=== PATIENT | male | born 1990 | race Caucasian/White ===

== ENCOUNTER 2020-03-01 12:15 | Emergency (ER) | payer BC, SELFPAY ==
--- NOTE | ~2020-03-01 | CT_ITS ---
EXAMINATION: CT abdomen pelvis w con DATE: 03/01/2020 14:44 INDICATION: Epigastric abdominal pain. TECHNIQUE: Computed tomography (CT) of the abdomen and pelvis was performed without intravenous contr ast. Automated exposure control and iterative reconstruction technique were employed. The dose-length product was 1357.66 mGy-cm. COMPARISON: Ultrasound 03/01/2020 FINDINGS: The visualized portions of the lung bases demonstrate minimal atelectasis. There is a 4 mm nodule left lower lobe, likely benign. No pleural effusion. The heart size is normal. No pericardial effusion. The liver and spleen are normal. The gallbladder is distended and contains gallstones. Gall bladder wall thickening is noted. There is fat stranding around the gallbladder. These findings are c onsistent with acute cholecystitis. The pancreas, adrenal glands, and kidneys are normal. There is di verticulosis of the colon without evidence of diverticulitis. There are no dilated loops of bowel. Th e appendix is normal. There are no pathologically enlarged lymph nodes. There is no free intraperiton eal fluid. There is mild lumbar spondylosis. IMPRESSION: 1. Acute cholecystitis. Reviewed, dictated and finalized at location A. ITY HELICOPTER REPAIRER IMPRESSION: 1. Acute cholecystitis.
--- NOTE | ~2020-03-01 | US_ITS ---
US right upper quadrant DATE: 03/01/2020 13:39 INDICATION: Upper abdominal pain with fatty foods TECHNIQUE: Real-time imaging of liver, pancreas, gallbladder areas COMPARISON: None FINDINGS: There is hepatic steatosis. Normal hepatopedal portal venous flow direction. No hepatic or pancreatic space-occupying mass lesion is evident. No gallstones are noted. There is thickening of the gallbladder wall, measuring up to 6 mm. Consider radionuclide hepatobiliar y scan as clinically appropriate. Negative sonographic Jones's sign. IMPRESSION: Nonspecific thickening of the gallbladder wall; no gallstones evident Hepatic steatosis. Reviewed, dictated and finalized at [facility]. Reviewed, dictated and finalized at location A. PTION INTERVIEWER IMPRESSION: Nonspecific thickening of the gallbladder wall; no gallstones evide nt Hepatic steatosis.
[2020-03-01 12:16] VITALS: BP 154/101; PULSE 91; RESP 18; TEMP 36.6; O2SAT 100
[2020-03-01 12:51] LABS: Basophils Absolute Auto 0.1 K/mm3 (0.0-0.1); Basophils Percent Auto 0.3 % (0.2-1.2); Eosinophils Absolute Auto 0.1 K/mm3 (0-0.3); Eosinophils Percent Auto 0.6 % (0-4.4); Hemoglobin 15.3 g/dL (14.0-18.0); Immature Granulocyte Absolute 0.04 K/mm3 (0.00-0.031); Immature Granulocyte Percent A 0.3 % (0-0.5); Lymphocytes Absolute Auto 2.89 K/mm3 (0.9-3.2); Lymphocytes Percent Auto 19.6 % (18.3-44.2); Mean Corpuscular Hemoglobin 29.6 pg (26-34); Mean Platelet Volume 9.1 fl (7.4-10.4); Monocytes Absolute Auto 1.2 K/mm3 (0.1-0.6); Monocytes Percent Auto 7.9 % (2.6-8.5); Neutrophils Absolute Auto 10.5 K/mm3 (1.3-6.7); Neutrophils Percent Auto 71.3 % (45.5-73.1); Platelet Count Result 278 k/mm3 (150-375); Red Blood Count 5.17 M/mm3 (4.6-6.20); Red Cell Distribution Width 12.5 % (11.5-14.5); White Blood Count 14.7 K/mm3 (4.5-10.0)
[2020-03-01 12:57] LABS: Add Urine Microscopic? YES; Appearance Urine Clear (Clear); Bilirubin Urine Negative (Negative); Blood Urine 1+ (Negative); Color Urine Yellow (Yellow); Glucose Urine UA Negative (Negative); Ketones Urine Negative (Negative); Leukocyte Esterase Ur Negative LEU/UL (Negative); Mucus Urine Rare /lpf; Nitrate Urine Negative (Negative); Protein Urine 1+ mg/dL (Negative); Specific Grav Ur 1.027 (1.001-1.035); Squamous Epithelial Cell Urine Rare /hpf (Few); Urobilinogen Urine Negative mg/dL (<2.0)
[2020-03-01 13:04] LABS: Alanine Aminotransferase 35 U/L (4-50); Albumin Level 4.6 g/dL (3.5-5.1); Alkaline Phosphatase 68 U/L (38-126); Anion Gap 7 mmol/L (8-16); Aspartate Amino Transferase 24 U/L (17-59); Bilirubin,Total 0.6 mg/dL (0.2-1.3); Blood Urea Nitrogen 12 mg/dL (9-20); Calcium 9.6 mg/dL (8.4-10.2); Carbon Dioxide 33 mmol/L (22-30); Chloride 100 mmol/L (98-107); Estimated CRCL calculation 140 ml/min; Estimated Glomerular Filt Rate > 60; Glucose 101 mg/dL (75-110); Lipase 48 U/L (23-300); Potassium 3.9 mmol/L (3.4-5.0); Sodium 140 mmol/L (137-145)
--- NOTE | 2020-03-01 13:09 | ED.ABDPAIN ---
HPI - Abdominal Pain General Chief Complaint: Abdominal Pain Stated Complaint: Abdominal pain Time Seen by Provider: 03/01/20 12:31 Source: patient Mode of arrival: ambulatory Limitations: no limitations History of Present Illness HPI narrative: This is a 29-year-old male that presents the emergency department for intermittent abdominal pain x6 months. Reports the pain is dull in nature. Reports he notices that it worsens after eating fatty foods. Reports last night he ate total eating and the pain has been constant since which prompted him to be seen. He was evaluated by his primary for this at one point and labs were ordered, but he did not get these because the pain went away. Denies fever, nausea, vomiting, dysuria, or diarrhea. Related Data Home Medications Medication Instructions Recorded Confirmed No Home Medications 03/01/20 03/01/20 Allergies Allergy/AdvReac Type Severity Reaction Status Date / Time cefaclor [From [facility]] Allergy Hives Verified 03/01/20 12:21 Review of Systems Review of Systems: Narrative: CONSTITUTIONAL: Denies fever CARDIOVASCULAR: Denies chest pain, or edema. RESPIRATORY: Denies dyspnea. GASTROINTESTINAL: Reports abdominal pain. Denies nausea, vomiting, or diarrhea. GENITOURINARY: Denies dysuria All systems reviewed & are unremarkable except as noted in HPI and below PMFSH Past Medical History Medical History (Updated 03/01/20 @ 16:26 by Geovanna Aranda PA-C) No active medical problems Social History Social History (Updated 03/01/20 @ 13:11 by Geovanna Aranda PA-C) Smoking status: Never smoker Gender identity (if verbalized by the patient): Male Exam Narrative: Exam Narrative: GENERAL: Well-appearing, obese, and in no acute distress. HEAD: Normocephalic, atraumatic. EYES: EOMI. CHEST: Clear to auscultation. No respiratory distress. No wheezes rales or rhonchi HEART: Regular rate and rhythm. No murmur heard. Normal peripheral pulses. ABDOMEN: Soft, nondistended, normal active bowel sounds. Tender to palpation in epigastrium and right upper quadrant, without guarding. No CVA tenderness EXTREMITIES: Normal range of motion. No edema. SKIN: Warm, dry, no rash. NEURO: No focal deficits. Alert and oriented x3. PSYCH: Normal mood and affect Course Consultations Consultation #1: Spoke with Dr. Bonner about patient and work-up. Patient will be started on a low-fat diet and will follow-up in clinic. No antibiotics recommended at this time Date: 03/01/20 Time: 16:24 Vital Signs Vital signs: Vital Signs Temperature 97.9 F 03/01/20 12:16 Pulse Rate 91 03/01/20 12:16 Respiratory Rate 18 03/01/20 12:16 Blood Pressure 154/101 H 03/01/20 12:16 Pulse Oximetry 100 03/01/20 12:16 Temperature 97.9 F 03/01/20 12:16 Pulse Rate 85 03/01/20 16:18 Respiratory Rate 18 03/01/20 16:18 Blood Pressure 158/90 H 03/01/20 16:18 Pulse Oximetry 99 03/01/20 16:18 MDM - Abdominal Pain MDM Narrative Medical decision making narrative: Patient presents the emergency department for upper abdominal pain following fatty meals which has been ongoing for months. He is afebrile and nontoxic-appearing. CBC with leukocytosis to 14.7. Metabolic panel and lipase are normal. UA without evidence of infection. Right upper quadrant ultrasound shows nonspecific thickening of the gallbladder wall. CT scan of the abdomen and pelvis shows gallbladder wall thickening with gallstones. Also shows surrounding fat stranding. Spoke with Dr. Bonner about patient and work-up. Patient will be started on a low-fat diet and can follow-up as an outpatient. Patient was given warnings to return to the ER Lab Data Attestation: I reviewed the patient's lab results. Result diagrams: 03/01/20 12:34 03/01/20 12:34 Labs: Lab Results 03/01/20 03/01/20 03/01/20 Range/Units 12:34 12:34 12:34 WBC 14.7 H (4.5-10.0) K/mm3 RBC 5.17 (4.6-6.20) M/mm3 Hg
[2020-03-01 16:18] VITALS: BP 158/90; PULSE 85; RESP 18; O2SAT 99
== END 2020-03-01 16:35 | disposition home or self-care (01) ==
PROVIDERS: Emergency Provider Emergency Medicine
DX: K81.0 Acute cholecystitis (principal); K76.0 Fatty (change of) liver, not elsewhere classified
CPT/HCPCS: 36415; 74177; 76705; 80053; 81001; 83690; 85025; 99284; Q9967

== ENCOUNTER 2020-04-06 00:36 | Outpatient (CLI) | payer BC, SELFPAY ==
[2020-04-06 18:50] LABS: SARS-CoV-2 RNA PCR Negative
== END 2020-04-06 00:37 | disposition home or self-care (01) ==
LOC: ANHCOVIDDT 00:36
PROVIDERS: Visit Provider Surgery
DX: Z01.812 Encounter for preprocedural laboratory examination (principal); Z20.822 Contact with and (suspected) exposure to COVID-19
CPT/HCPCS: C9803; U0003

== ENCOUNTER 2020-04-06 09:15 | Outpatient (CLI) | payer BC, SELFPAY ==
[2020-04-06 10:06] LABS: Alanine Aminotransferase 444 U/L (4-50); Albumin Level 4.3 g/dL (3.5-5.1); Alkaline Phosphatase 120 U/L (38-126); Amylase 38 U/L (30-110); Anion Gap 7 mmol/L (8-16); Aspartate Amino Transferase 91 U/L (17-59); Bilirubin,Total 0.5 mg/dL (0.2-1.3); Blood Urea Nitrogen 14 mg/dL (9-20); Calcium 9.6 mg/dL (8.4-10.2); Carbon Dioxide 32 mmol/L (22-30); Chloride 100 mmol/L (98-107); Estimated Glomerular Filt Rate > 60; Glucose 110 mg/dL (75-110); Lipase 54 U/L (23-300); Potassium 4.3 mmol/L (3.4-5.0); Sodium 139 mmol/L (137-145)
== END 2020-04-06 09:16 | disposition home or self-care (01) ==
PROVIDERS: PCP Family Medicine; Visit Provider Surgery
DX: Z01.812 Encounter for preprocedural laboratory examination (principal); K80.10 Calculus of gallbladder with chronic cholecystitis without obstruction
CPT/HCPCS: 36415; 80053; 82150; 82248; 83690; 86850; 86900; 86901

== ENCOUNTER 2020-04-09 00:32 | Day surgery (SDC) | payer BC, SELFPAY ==
[2020-04-01 14:44] VITALS: BMI 33.7
--- NOTE | 2020-04-08 13:50 | PM.SD ---
Same Day Admit/Disch: HPI History of Present Illness Chief complaint: Chronic Cholecystitis With Stones, Abnl LFT's Narrative: Clarence Sweeney is a 29 year old male Who for the last 9 months is had postprandial right upper quadrant pain associated with nausea. The pain is worse after fatty meals. He had a particularly bad episode on 03/01/2020. He went to the emergency room where CT scan there showed gallstones with a thickened gallbladder wall consistent with acute cholecystitis. He had also an ultrasound which showed nonspecific gallbladder wall thickening but surprisingly no gallstones. There was hepatic steatosis as well. Patient was seen in the office and felt to have chronic cholecystitis with gallstones. With his preoperative lab work his liver function test were higher than they were in the emergency room in February. He is taken to surgery now for laparoscopic cholecystectomy with intraoperative cholangiogram. [facility] Past Medical History Medical History Asthma GERD (gastroesophageal reflux disease) No active medical problems Surgical History Surgical History History of excision of pilonidal cyst Hx of tonsillectomy Family History Family History Mother No problems noted. Father No problems noted. Other Heart disease Hypertension Social History Social History Smoking status: Never smoker Alcohol intake: current Substance use: never Living arrangements: with family Additional occupation/education comments: [email or web address] Gender identity (if verbalized by the patient): Male Spiritual care concerns: No Same Day Admit/Disch: Med Pre-admit Medications Home Medications Medication Instructions Recorded Confirmed Type omeprazole 20 mg tablet,delayed 20 mg PO DAILY 03/05/20 04/09/20 History release hydrocodone-acetaminophen 1 - 2 tablet PO Q6H PRN #7 tablet 04/09/20 Rx ibuprofen 600 mg PO Q6H PRN #14 tablet 04/09/20 Rx Exam Const: General: comfortable, no acute distress, alert and awake HENMT: Head: normocephalic and atraumatic Mouth: Yes Normal oral and palatal mucosa present Eyes: Conjunctivae: conjunctivae normal Pupils: Equal, round and reactive pupils present EOM: EOMs intact bilaterally Neck: Neck: normal visual inspection, no lymphadenopathy and nontender Resp: Effort & Inspection: normal respiratory effort Auscultation: clear to auscultation bilaterally Cardio: Rate: regular rate Rhythm: regular rhythm Heart sounds: no gallops, no murmurs and no rubs GI: Inspection: non-distended GI Palp: Yes Soft to palpation, No Tenderness to palpation present (GI), No Hepatomegaly present and No Splenomegaly present Skin: Lesions: no lesions Rashes: no rashes Neuro: General: no focal motor deficits and CN's II-XI intact bilaterally Cranial nerves: Yes Equal, round and reactive pupils present, Yes Bilaterally intact EOM present, Yes facial symmetry and Yes Midline tongue present Speech: normal speech Motor exam (neuro): 5/5 motor strength present throughout and Motor abnormalities not present Extrem: General: no clubbing, cyanosis or edema and edema Psych: Affect: normal affect Thought process: Normal thought process present Insight: Good insight present (Psych) DS: Summary Hospital Course Hospital Course: Patient was able to be discharged after outpatient surgical procedure. Time Spent with Patient Time attestation: Total time spent providing and/or coordinating discharge services: Patient was able to be discharged after outpatient surgery in good condition. DS: Admitting Diagnosis Admitting Diagnosis Admitting Diagnosis: Chronic cholecystitis with gallstones abnormal liver function tests-- plan is per to proceed with laparoscopic cholecyst
[2020-04-09] VITALS (9 sets, daily range): BP systolic 134–150; BP diastolic 75–96; PULSE 53–78; RESP 16–20; TEMP 36–36.4; O2SAT 95–100
--- NOTE | ~2020-04-09 | XR_ITS ---
XR cholangiogram surg 1st inj DATE: 04/09/2020 11:41 INDICATION: Laparoscopic cholecystectomy TECHNIQUE: Rapid sequence serial images of the bile ducts during intraoperative injection with contra st material COMPARISON: None FINDINGS: Normal caliber of the intrahepatic and extrahepatic biliary tree; no stricture, abnormal di latation, obstruction or persistent filling defect is evident. Contrast material flows freely into th e duodenum. IMPRESSION: Negative Reviewed, dictated and finalized at Location [facility]. Reviewed, dictated and finalized at location B. E ENGINEER IMPRESSION: Negative
--- NOTE | 2020-04-09 08:29 | P.PNAN_ITS ---
Anes - Initial Pre Proc Eval Procedure: Operation Date: 04/09/20 10:30 Proposed Procedures p Laparoscopic Cholecystectomy with Intraoperative Cholangiograms - Suraj Bonner MD Date/Time: 04/09/20 08:29 Surgeon: Suraj Bonner MD Pre Op Diagnosis: Chronic Cholecystitis With Stones Patient Data Age: 29 Gender: M Height: 6 ft 1 in Weight: 115.9 kg Allergies Allergy/AdvReac Type Severity Reaction Status Date / Time cefaclor [From Ceclor] Allergy Unknown Hives Verified 04/09/20 08:44 Home Medications Medication Instructions Recorded Confirmed Type omeprazole 20 mg tablet,delayed 20 mg PO DAILY 03/05/20 04/09/20 History release Patient hx anesthesia problems: none Family hx anesthesia problems: none PMFSH Past Medical History Medical History (Updated 04/09/20 @ 08:29 by Rei Sweeney MD) Asthma GERD (gastroesophageal reflux disease) No active medical problems Surgical History Surgical History History of excision of pilonidal cyst Hx of tonsillectomy Family History Family History Mother No problems noted. Father No problems noted. Other Heart disease Hypertension Social History Social History Smoking status: Never smoker Alcohol intake: current Substance use: never Living arrangements: with family Additional occupation/education comments: [employer] Gender identity (if verbalized by the patient): Male Spiritual care concerns: No Anes - Eval Final PreProcedure Day of Procedure 04/09/20 08:29 Patient weight: overweight Heart: regular rate and rhythm Lungs: clear to auscultation Airway: Mallampati scale class II Neurological: alert and oriented Last oral intake: >/= 8 hours ASA classification: II Emergent: no Anesthetic plan: proceed Anesthesia type and monitoring: general ETT and standard monitoring Informed Consent: The patient's anesthetic plan and its attendant risks and benefits were discussed with the patient/family/POA. Questions were solicited and answers provided to the satisfaction of the patient/family/POA.
[2020-04-09] MEDS: ACETAMINOPHEN 500 MG TABLET 1000 MG PO (09:20)
[2020-04-09] MEDS: LACTATED RINGERS 1,000 ML 30 ML IV CONT ×2 (09:21→12:13)
[2020-04-09] MEDS: KETOROLAC 15 MG/ML VIAL (*BKC) IV PUSH (09:21)
--- NOTE | 2020-04-09 10:22 | WPDHPUPDATE1 ---
History and Physical Update Update Date/Time: 04/09/20 10:22 History and Physical has been reviewed, including an updated exam of the patient. There are NO changes in the patient's condition. Risks, benefits, and alternatives have been discussed and questions answered. Patient agrees to proceed with procedure.
[2020-04-09] MEDS: ceFAZolin 2 GM/D5W 50 ML 2 GM/50 ML BAG IVPB (10:38)
[2020-04-09] MEDS: BUPIVACAINE HCL 0.5% PF 30 ML VIAL INFILTRATE (11:01)
--- NOTE | 2020-04-09 12:17 | PM.PROC ---
Procedure Note - Detailed Date of procedure: 04/09/20 Pre-op diagnosis: Chronic Cholecystitis With Stones, Abnl LFT's Chronic cholecystitis, cholelithiasis, abnormal liver function tests Post-op diagnosis: same Procedure performed: Laparoscopic cholecystectomy with intraoperative cholangiogram Description of procedure: The patient was taken to surgery and induced into general anesthesia. The abdomen was prepped and draped. Trocars were placed in the usual fashion using 0.5% Marcaine with epinephrine and applied Medical optical trocars. A 5 millimeter camera was used. The gallbladder was decompressed with a laparoscopic aspirator. The infundibulum of the gallbladder was exposed. It was retracted anterosuperiorly. We exposed the cholecystohepatic triangle and dissected out the cystic duct and cystic artery.The gallbladder was dissected off the liver at its lower 3rd. Critical view was achieved. The cystic artery was securely clipped and divided. Cystic duct was dissected through most of its length. The cystic duct was clipped at the distal gallbladder. A small incision was made in the upper cystic duct with cystic duct scissors. The cholangiogram catheter was passed into the cystic duct. We then brought the C-arm fluoroscopy into the field. Intraoperative cholangiograms were done with C-arm fluoroscopy. This showed a normal cholangiogram with no evidence of common bile duct filling defects. There was prompt duodenal filling and no evidence of common bile duct injury. The cholangiogram catheter was removed from the cystic duct. The cystic duct was then securely clipped and divided. The gallbladder was then dissected free of its peritoneal attachments to the liver. The gallbladder was partially intrahepatic and there was acute edema associated with the cholecystitis. A couple of entries were made into the gallbladder. There were innumerable small stones in the gallbladder. Some of these spilled. This required irrigation and suctioning to retrieve the stones. We proceeded with dissection of the gallbladder from the liver. Once completely freed, the gallbladder was placed in an Endo-Catch bag and retrieved through the 10 11 epigastric trocar. The epigastric trocar was then replaced. We reviewed the right upper quadrant and gallbladder fossa. It was irrigated and suctioned. Cautery was used for hemostasis. Repeated irrigation and suctioning were carried out using most of a 3 L bag. No bleeding and no stones were noted despite extensive searching. All looked good with no evidence of bleeding or bile leakage. We then evacuated CO2 and removed the trocar sleeves. The fascia at the epigastric port was closed with [id number] 0 Vicryl suture. The subcutaneous was closed with interrupted 3 0 Vicryl suture. All skin wounds were closed with subcuticular 4 O Monocryl skin suture. The wounds were dressed with Exofin surgical adhesive. The patient transferred to recovery in good condition. Sponge and needle counts were correct x2. Anesthesia: GETA and local (0.5% Marcaine with epinephrine) Surgeon: Suraj Bonner MD Plisse Machine Operator Helper: CHRIS Mejía Estimated blood loss (mL): 15 Drains: No Packing: No Pathology: yes (Gallbladder) Complications: None Condition: stable Disposition: PACU Findings: Acute and chronic inflammation was noted. Despite the gallbladder being full of tiny small stones, intraoperative cholangiogram was negative. No biliary ductal dilatation was noted. Fatty liver was noted.
[2020-04-09] MEDS: oxyCODONE HCL (*CRX) 5 MG TAB IR PO (13:43)
== END 2020-04-09 14:09 | disposition home or self-care (01) ==
PROVIDERS: PCP Family Medicine; Visit Provider Surgery
PROC: 0FT44ZZ Resection of Gallbladder, Percutaneous Endoscopic Approach (ICD-10-PCS; CPT 47562; principal; 2020-04-09 10:30)
DX: K80.10 Calculus of gallbladder with chronic cholecystitis without obstruction (principal); J45.909 Unspecified asthma, uncomplicated; K21.9 Gastro-esophageal reflux disease without esophagitis
CPT/HCPCS: 47563; 74300; 88304; A9270; C1713; J0330; J0690; J1100; J1885; J2250; J2405; J2704; J2710; J3010; J7120; Q9966